=== PATIENT | male | born 1990 | race Hispanic/Latino ===

== ENCOUNTER 2018-12-21 04:22 | Emergency (ER) | payer OTHER | END 2018-12-21 05:25 | disposition home or self-care (01) | LOC: EDH 04:22 | DX: K42.9 Umbilical hernia without obstruction or gangrene (principal) ==

== ENCOUNTER 2022-09-14 18:22 | Emergency (ER) | payer OTHER ==
[~2022-09-14] VITALS: Ht 170.2 cm; Wt 63.5 kg
[2022-09-14 20:49] VITALS: BP 120/76
[2022-09-14] MEDS ORDERED: FLUORESCEIN SODIUM 1 STRIP STRIP OP SCH (21:00)
[2022-09-14] MEDS ORDERED: TETRACAINE HCL 0.5% 4 ML OPHTH SOLN OP SCH (21:00)
[2022-09-14] MEDS ORDERED: KETO5DRO82 OP (21:22)
== END 2022-09-14 21:36 | disposition home or self-care (01) ==
LOC: EDH 18:22
DX: S05.02XA Injury of conjunctiva and corneal abrasion without foreign body, left eye, initial encounter (principal); X58.XXXA Exposure to other specified factors, initial encounter; Y93.89 Activity, other specified; Y92.89 Other specified places as the place of occurrence of the external cause; Y99.8 Other external cause status